=== PATIENT | female | born 1950 | race Caucasian/White ===

== ENCOUNTER → 2022-08-05 | Outpatient (CLI) | payer MEDICARE, BC, SELFPAY ==
[2022-08-05 13:55] LABS: Thyroid Stim Hormone (TSH) 3.86 uIU/mL (0.358-3.74)
[2022-08-07 08:29] LABS: Thyroid Peroxidase AB 299 IU/mL (0-34)
== END | disposition home or self-care (01) ==
LOC: LAB 12:34
PROVIDERS: PCP Nurse Practitioner Family; Referring Provider Nurse Practitioner Family; Visit Provider Nurse Practitioner Family
DX: E07.9 Disorder of thyroid, unspecified (principal); E06.3 Autoimmune thyroiditis
CPT/HCPCS: 36415; 84443; 86376

== ENCOUNTER → 2022-12-07 | Outpatient (CLI) | payer MEDICARE, BC, SELFPAY ==
[2022-12-07 10:43] LABS: Absolute Lymphocyte Count 2.37 X10^3/uL (0.83-4.51); Absolute Neutrophil Count 4.5 X10^3/uL (2.0-7.7); Basophil# 0.08 X10^3/uL; Eosinophil# 0.24 X10^3/uL; Eosinophils% 3.1 % (0-5); Hematocrit 44.8 % (37-47); Hemoglobin 14.9 g/dL (12.0-15.0); Lymphocyte # 2.37 X10^3/ul (0.83-4.51); Lymphocyte % 30.7 % (19-41); Mean Corp Hgb Conc 33.3 g/dL (32-36); Mean Corpuscular Hgb 32.7 pg (27.0-32.0); Mean Corpuscular Volume 98.5 fL (81-99); Mean Platelet Vol. 11.6 fl (6.2-12.0); Monocyte# 0.54 X10^3/uL; NRBC Flagged by Analyzer 0 % (0-5); Neutrophil # 4.48 X10^3/uL (2.7-7.7); Neutrophil % 58.1 % (47-70); Platelet Count 246 K/mm3 (150-450); RBC Distribution Width CV 14.2 % (11.6-14.6); RBC Distribution Width SD 51.8 fl (35.1-43.9); Red Blood Count 4.55 M/mm3 (4.2-5.4); White Blood Count 7.7 K/mm3 (4.4-11.0)
[2022-12-07 11:04] LABS: Vitamin B12 325 pg/mL (211-911); Vitamin D,25 Hydroxy 72.3 ng/mL
[2022-12-07 11:09] LABS: ALB/GLOB Ratio 0.9 RATIO (0.9-2.4); AST(SGOT) 22 U/L (15-37); Alanine Aminotransfer ALT/SGPT 31 U/L (13-56); Albumin, Serum 3.7 g/dL (3.2-5.0); Alkaline Phosphatase 83 U/L (45-117); Anion Gap 6 (5-15); BUN 20 mg/dL (7-18); BUN/Creat Ratio 24.6 RATIO (10-20); Calcium,Total 9.3 mg/dL (8.5-10.1); Chloride 109 mmol/L (98-107); Cholesterol 238 mg/dL (200); Creatinine, Serum 0.81 mg/dL (0.55-1.02); EST Glomerular Filtration Rate 74 mL/min (>60); Est Glom Filt Rate - Afr Amer 89 mL/min (>60); Ferritin 116 ng/mL (8-252); Globulin 4.1 g/dL (2.2-4.2); Glucose 112 mg/dL (74-106); High Density Lipoprotein 46 mg/dL; Magnesium 2.4 mg/dL (1.6-2.6); Potassium 3.8 mmol/L (3.5-5.1); Protein, Total 7.8 g/dL (6.4-8.2); Sodium Level 138 mmol/L (136-145); Triglycerides 181 mg/dL; Very Low Density Lipoprotein 36 mg/dL (5-40)
[2022-12-07 11:09] LABS: Thyroid Stim Hormone (TSH) 1.11 uIU/mL (0.358-3.74)
== END | disposition home or self-care (01) ==
LOC: LAB 09:05
PROVIDERS: PCP Family Medicine; Referring Provider Nurse Practitioner Family; Visit Provider Nurse Practitioner Family
DX: E11.9 Type 2 diabetes mellitus without complications (principal); E06.3 Autoimmune thyroiditis; Z13.220 Encounter for screening for lipoid disorders; R53.83 Other fatigue
CPT/HCPCS: 36415; 80053; 80061; 82306; 82607; 82728; 83036; 83735; 84439; 84443; 85025

== ENCOUNTER → 2023-03-24 | Outpatient (CLI) | payer MEDICARE, BC, SELFPAY ==
[2023-03-24 13:35] LABS: Vitamin B12 1083 pg/mL (211-911)
== END | disposition home or self-care (01) ==
LOC: LAB 12:37
PROVIDERS: PCP Family Medicine; Referring Provider Family Medicine; Visit Provider Family Medicine
DX: R53.83 Other fatigue (principal)
CPT/HCPCS: 36415; 82607

== ENCOUNTER → 2023-09-27 | Outpatient (CLI) | payer MEDICARE, BC, SELFPAY ==
[2023-09-27 11:11] LABS: Absolute Lymphocyte Count 2.66 X10^3/uL (0.83-4.51); Absolute Neutrophil Count 5.3 X10^3/uL (2.0-7.7); Basophil% 1.1 % (0-1); Eosinophil# 0.25 X10^3/uL; Eosinophils% 2.8 % (0-5); Hematocrit 43.5 % (37-47); Hemoglobin 14.7 g/dL (12.0-15.0); Lymphocyte # 2.66 X10^3/ul (0.83-4.51); Lymphocyte % 29.8 % (19-41); Mean Corp Hgb Conc 33.8 g/dL (32-36); Mean Corpuscular Hgb 32.2 pg (27.0-32.0); Mean Corpuscular Volume 95.2 fL (81-99); Monocyte% 6.7 % (0-10); NRBC Flagged by Analyzer 0 % (0-5); Neutrophil # 5.28 X10^3/uL (2.7-7.7); Neutrophil % 59.3 % (47-70); Platelet Count 263 K/mm3 (150-450); RBC Distribution Width CV 12.7 % (11.6-14.6); RBC Distribution Width SD 44.4 fl (35.1-43.9); Red Blood Count 4.57 M/mm3 (4.2-5.4); White Blood Count 8.9 K/mm3 (4.4-11.0)
[2023-09-27 11:41] LABS: Vitamin B12 1493 pg/mL (211-911); Vitamin D,25 Hydroxy 60.8 ng/mL
[2023-09-27 11:50] LABS: ALB/GLOB Ratio 0.9 RATIO (0.9-2.4); AST(SGOT) 21 U/L (15-37); Alanine Aminotransfer ALT/SGPT 38 U/L (13-56); Albumin, Serum 3.7 g/dL (3.2-5.0); Alkaline Phosphatase 84 U/L (45-117); Anion Gap 5 (5-15); BUN 20 mg/dL (7-18); BUN/Creat Ratio 28.5 RATIO (10-20); Calcium,Total 9.2 mg/dL (8.5-10.1); Chloride 108 mmol/L (98-107); Cholesterol 246 mg/dL (200); EST Glomerular Filtration Rate 87 mL/min (>60); Est Glom Filt Rate - Afr Amer 105 mL/min (>60); Ferritin 206 ng/mL (8-252); Globulin 4.2 g/dL (2.2-4.2); Glucose 228 mg/dL (74-106); High Density Lipoprotein 42 mg/dL; Potassium 3.8 mmol/L (3.5-5.1); Protein, Total 7.9 g/dL (6.4-8.2); Sodium Level 139 mmol/L (136-145); T4 Free Direct 1.33 ng/dL (0.76-1.46); Triglycerides 157 mg/dL; Very Low Density Lipoprotein 31 mg/dL (5-40)
[2023-09-27 11:54] LABS: Microalbumin,Random Urine 39.3 mg/L (NO RANGE EST.); Microalbumin:Creatinine Ratio 19.8 mg/g CRE (<30 mg/g CRE)
== END | disposition home or self-care (01) ==
LOC: LAB 10:44
PROVIDERS: PCP Family Medicine; Referring Provider Nurse Practitioner Family; Visit Provider Nurse Practitioner Family
DX: E06.3 Autoimmune thyroiditis (principal); E11.3293 Type 2 diabetes mellitus with mild nonproliferative diabetic retinopathy without macular edema, bilateral; R53.83 Other fatigue; E78.00 Pure hypercholesterolemia, unspecified; E55.9 Vitamin D deficiency, unspecified
CPT/HCPCS: 36415; 80053; 80061; 82043; 82306; 82570; 82607; 82728; 84439; 84443; 85025

== ENCOUNTER → 2023-10-01 | Outpatient (CLI) | payer MEDICARE, BC, SELFPAY ==
[2023-10-01 14:17] LABS: AST(SGOT) 24 U/L (15-37); Alanine Aminotransfer ALT/SGPT 35 U/L (13-56); Albumin, Serum 4.1 g/dL (3.2-5.0); Alkaline Phosphatase 82 U/L (45-117); Anion Gap 6 (5-15); BUN 17 mg/dL (7-18); BUN/Creat Ratio 22.9 RATIO (10-20); Calcium,Total 9.6 mg/dL (8.5-10.1); Chloride 107 mmol/L (98-107); Creatinine, Serum 0.74 mg/dL (0.55-1.02); EST Glomerular Filtration Rate 82 mL/min (>60); Est Glom Filt Rate - Afr Amer 99 mL/min (>60); Glucose 169 mg/dL (74-106); Potassium 3.7 mmol/L (3.5-5.1); Protein, Total 8.1 g/dL (6.4-8.2); Sodium Level 137 mmol/L (136-145)
[2023-10-03 16:07] LABS: Dilute Prothrombin Time (dPT) 43.7 sec (0.0-47.6); Interpretation Comment: (.); PTT-LA 40.8 sec (0.0-43.5); Thrombin Time 18.5 sec (0.0-23.0); dPT Confirm Ratio 1.02 Ratio (0.00-1.34)
[2023-10-06 16:09] LABS: ANTINUCLEAR ANTIBODIES DIRECT Negative (Negative); Anti-Histone Abs 0.8 Units (0.0-0.9)
== END | disposition home or self-care (01) ==
LOC: MFPLAB 11:18
PROVIDERS: PCP Family Medicine; Visit Provider Family Medicine
DX: D89.89 Other specified disorders involving the immune mechanism, not elsewhere classified (principal); R10.9 Unspecified abdominal pain
CPT/HCPCS: 36415; 80053; 86038; 86235; 86431

== ENCOUNTER → 2023-12-27 | Outpatient (CLI) | payer MEDICARE, BC, SELFPAY ==
[2023-12-27 11:55] LABS: Thyroid Stim Hormone (TSH) 0.93 uIU/mL (0.358-3.74)
== END | disposition home or self-care (01) ==
LOC: LAB 11:03
PROVIDERS: PCP Family Medicine; Referring Provider Nurse Practitioner Family; Visit Provider Nurse Practitioner Family
DX: E06.3 Autoimmune thyroiditis (principal)
CPT/HCPCS: 36415; 84439; 84443

== ENCOUNTER → 2024-01-12 | Outpatient (CLI) | payer MEDICARE, BC, SELFPAY ==
--- NOTE | 2024-01-12 10:52 | US_ITS ---
STUDY: THYROID ULTRASOUND REASON FOR EXAM: Female, 73 years old. hypothyroid -- please include parotid glands TECHNIQUE: Ultrasound evaluation of the thyroid was performed with real-time and static ferrer-scale imaging. COMPARISON: None. FINDINGS: RIGHT LOBE: The right lobe of the thyroid gland measures 4.1 x 1.3 x 1.6 cm. There is a heterogeneous echotexture. Nodule 1:4 x 5 x 5 mm solid hyperechoic smaller than wide ill-defined margin nodule and no echogenic foci (TR 4) in the inferior right lobe consistent with an adenoma. LEFT LOBE: The left lobe of the thyroid gland measures 3.6 x 1.2 x 1.2 cm. There is a homogeneous echotexture. Nodule 2:12 x 6 x 11 mm solid isoechoic quadrant all ill-defined margin nodule and no echogenic foci (TR 3) in the medial left lobe consistent with an adenoma. ISTHMUS: The isthmus measures 5 mm thick. . The regional lymph nodes are normal. IMPRESSION: Thyroiditis with small adenomas. Electronically Signed: Haseeb Mendez MD at 11:35 EDT , STUDY: SUPERFICIAL ULTRASOUND - SOFT TISSUE NECK REASON FOR EXAM: Female, 73 years old. hypothyroid -- please include parotid glands -- right neck swelling, carotid area TECHNIQUE: A superficial ultrasound was performed with real-time and static ferrer-scale imaging. COMPARISON: None. FINDINGS: Multiple longitudinal and transverse ultrasound images of the parotid glands were obtained. Next The right parotid gland is normal in size measuring 6.1 x 4.0 x 2.6 cm. The right parotid gland demonstrates normal morphology and echogenicity. There is a 7 mm oval hypoechoic mass within the right parotid gland likely consistent with a lymph node. There is another 8 mm oval hypoechoic mass with central increased echogenicity adjacent to the right parotid gland consistent with a lymph node. There is another 9 mm lymph node adjacent to the right parotid gland. The left parotid gland is normal in size measuring 5.2 x 4.6 x 2.1 cm. The left parotid gland demonstrates normal morphology and echogenicity. There is a 9 mm oval hypoechoic mass within the left parotid gland likely consistent with a lymph node. e US/Head/Neck Soft Tissue IMPRESSION: Normal parotid glands. Electronically Signed: Haseeb Mendez MD at 13:09 EDT ,
== END | disposition home or self-care (01) ==
LOC: US 10:44
PROVIDERS: PCP Family Medicine; Referring Provider Nurse Practitioner Family; Visit Provider Nurse Practitioner Family
DX: E07.9 Disorder of thyroid, unspecified (principal); K11.1 Hypertrophy of salivary gland
CPT/HCPCS: 76536

== ENCOUNTER → 2024-02-21 | Outpatient (CLI) | payer MEDICARE, BC, SELFPAY ==
--- NOTE | 2024-02-21 13:40 | CT_ITS ---
INDICATION: LUMP/MASS ON NECK EXAMINATION: CT NECK WITH CONTRAST - CT Soft Tissue Neck W/ Contrast Injection TECHNIQUE: Helically acquired images were obtained of the neck following IV contrast. The protocol utilizes one or more of the following dose reduction techniques: automated exposure control, adjustment of mA and/or kV according to patient size,and/or use of iterative reconstruction technique. IV Contrast dosage and agent: 75 mL of Isovue-370 RADIATION DOSAGE (If Supplied By Facility): CTDIvol = ( 17.99 ) mGy, DLP = ( 512.36 ) mGycm COMPARISON: No relevant prior comparison study available FINDINGS: NASOPHARYNX: Unremarkable. SUPRAHYOID NECK: Unremarkable oropharynx, oral cavity, parapharyngeal space, and retropharyngeal space. A marker is positioned along the right neck at the region of concern. This is along the inferior margin of the parotid gland. There is an adjacent small lymph node. No suspicious mass. INFRAHYOID NECK: Unremarkable larynx, hypopharynx, and supraglottis. THYROID: No focal lesions. SALIVARY GLANDS: Unremarkable. LYMPH NODES: No cervical or supraclavicular lymphadenopathy. VASCULAR STRUCTURES: Normal caliber of the vasculature. Mild atherosclerotic calcification. VISUALIZED PORTIONS OF THE ORBITS, PARANASAL SINUSES, MASTOID AIR CELLS AND SKULL BASE: Unremarkable. BONES: No acute abnormality. Mild to moderate degenerative change throughout the cervical spine. THORACIC INLET: Clear lung apices. CT/Soft Tissue Neck WITH Contrast IMPRESSION: No suspicious findings in the neck. Underlying the marker there is no focal mass. Small lymph node identified as well as the inferior margin of the parotid gland. Electronically Signed: Leonardo Sweet MD at 22:42 EDT ,
[2024-02-21 14:15] LABS: CREATININE FINGERSTICK < 1.0 mg/dL (0.55-1.02); EGFR FINGERSTICK > 60.0000 mL/min (>60)
== END | disposition home or self-care (01) ==
PROVIDERS: PCP Family Medicine; Referring Provider Otolaryngology; Visit Provider Otolaryngology
DX: Z01.812 Encounter for preprocedural laboratory examination (principal); R22.1 Localized swelling, mass and lump, neck
CPT/HCPCS: 70491; Q9967; A4216

== ENCOUNTER 2024-09-21 11:55 | Outpatient (CLI) | payer MEDICARE, BC, SELFPAY ==
--- NOTE | 2024-09-21 12:45 | RAD_ITS ---
PROCEDURE: Lumbar spine radiographs, three views 09/21/2024 REASON FOR EXAM: PAIN TECHNIQUE: Three views of the lumbar spine were obtained. COMPARISON: None available FINDINGS: Three views of the lumbar spine were obtained. The bones are osteopenic. Right upper quadrant surgical clips are present. No acute lumbar vertebral body fracture. Grade 1 anterolisthesis of L4 relative to L5. Moderate multilevel degenerative disc and facet disease in the lumbar spine, greatest at the L5-S1 level. RAD/Lumbar Spine 2 or 3 Views IMPRESSION: Osteopenia. No acute bony abnormality of the lumbar spine. Moderate multilevel degenerative disc and facet disease in the lumbar spine, gr eatest at L5-S1. If there is persistent pain or clinical concern, follow-up MRI evaluation may b e considered. Reading Location: [facility]
[2024-09-21 17:21] LABS: ALB/GLOB Ratio 1.4 RATIO (0.9-2.4); AST(SGOT) 35 U/L (<=31); Alanine Aminotransfer ALT/SGPT 50 U/L (<=34); Albumin, Serum 4.6 g/dL (3.4-4.8); Alkaline Phosphatase 75 U/L (35-104); Anion Gap 15 (5-15); BUN 18 mg/dL (4-19); BUN/Creat Ratio 23.4 RATIO (10-20); Calcium,Total 9.9 mg/dL (7.6-11.0); Carbon Dioxide 19.4 mmol/L (21.0-32.0); Chloride 104 mmol/L (98-108); Cholesterol 254 mg/dL (<=200); Creatinine, Serum 0.78 mg/dL (0.70-1.20); EST Glomerular Filtration Rate 80 (>60); Globulin 3.2 g/dL (2.2-4.2); Glucose 236 mg/dL (70-99); High Density Lipoprotein 33 mg/dL; Low Density Lipoprotein Calc. 167 mg/dL; Potassium 4.1 mmol/L (3.3-5.1); Protein, Total 7.8 g/dL (5.9-8.4); Sodium Level 138 mmol/L (133-145); Total Bilirubin 0.32 mg/dL (0.00-1.30); Triglycerides 270 mg/dL; Very Low Density Lipoprotein 54 mg/dL (5-40); cholesterol:hdl ratio screen 7.67
[2024-09-21 17:23] LABS: Thyroid Stim Hormone (TSH) 0.602 uIU/mL (0.300-4.200); Vitamin D,25 Hydroxy 32.9 ng/mL (30-100)
== END 2024-09-21 23:59 | disposition home or self-care (01) ==
PROVIDERS: PCP Family Medicine; Referring Provider Family Medicine; Visit Provider Family Medicine
DX: E03.9 Hypothyroidism, unspecified (principal); E11.9 Type 2 diabetes mellitus without complications; M54.10 Radiculopathy, site unspecified
CPT/HCPCS: 36415; 72100; 80053; 80061; 82306; 84443

== ENCOUNTER → 2025-01-03 | Outpatient (CLI) | payer MEDICARE, BC, SELFPAY ==
--- NOTE | 2025-01-03 10:10 | BI_ITS ---
EXAM: SCRN MAMM (CAD)W/EDUIN BILAT DATE: 01/03/2025 CLINICAL HISTORY: F, Age 74 y/o , SCREENING TECHNIQUE: SCRN MAMM (CAD)W/EDUIN BILAT COMPARISON: Prior exam(s) dated 12/18/2020, 09/13/2018. FINDINGS: TISSUE DENSITY: The breasts are almost entirely fatty. Bilateral Breast Mammographic Findings: No significant masses, calcifications or other abnormalities are identified. BI/SCRN MAMM (CAD)W/EDUIN BILAT IMPRESSION: There is no mammographic evidence of malignancy. OVERALL FINAL ASSESSMENT BI-RADS 1: NEGATIVE. RECOMMENDATION: Routine annual follow-up in 1 Year A letter with findings and recommendations will be mailed to the patient. Reading Location: [id number]
--- OUTSIDE RECORDS SUMMARY | 2025-01-03 18:39 | XMS RPT_ITS | CCD ---
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 following dose reduction techniques: automated exposure control, adjustment of mA and/or kV according to patient size,and/or use of iterative reconstruction technique. IV Contrast dosage and agent: 75 mL of Isovue-370 RADIATION DOSAGE (If Supplied By Facility): CTDIvol = ( 17.99 ) mGy, DLP = ( 512.36 ) mGycm COMPARISON: No relevant prior comparison study available FINDINGS: NASOPHARYNX: Unremarkable. SUPRAHYOID NECK: Unremarkable oropharynx, oral cavity, parapharyngeal space, and retropharyngeal space. A marker is positioned along the right neck at the region of concern. This is along the inferior margin of the parotid gland. There is an adjacent small lymph node. No suspicious mass. INFRAHYOID NECK: Unremarkable larynx, hypopharynx, and supraglottis. THYROID: No focal lesions. SALIVARY GLANDS: Unremarkable. LYMPH NODES: No cervical or supraclavicular lymphadenopathy. VASCULAR STRUCTURES: Normal caliber of the vasculature. Mild atherosclerotic calcification. VISUALIZED PORTIONS OF THE ORBITS, PARANASAL SINUSES, MASTOID AIR CELLS AND SKULL BASE: Unremarkable. BONES: No acute abnormality. Mild to moderate degenerative change throughout the cervical spine. THORACIC INLET: Clear lung apices. CT/Soft Tissue Neck WITH Contrast IMPRESSION: No suspicious findings in the neck. Underlying the marker there is no focal mass. Small lymph node identified as well as the inferior margin of the parotid gland. Electronically Signed: Leonardo Sweet MD at 22:42 EDT Reading Location ID and State: [address] [place] [address] Tel , Service support , CC: Dr. Rene Cortez MD; Dr. Steven Mendez MD Proposal Review Analyst: Signed Normal [facility] Head/Neck Soft Tissueon 08- Head/Neck Soft Tissue [facility] Imaging Services [address] [place] [id number] Head/Neck Soft Tissue MR#: [id number] Acct: [id number] Name: DREW WOODARD Rep #: [id number] : 1950 F 73 From: Haseeb Mendez MD PCP: Dr. Rene Cortez MD Status: [facility] CLI Study: Head/Neck Soft Tissue Date of Exam: 01/12/24 Exam# [id number] Ordering Dr: Una Gaona [employer]ACHINE-C [id number] STUDY: THYROID ULTRASOUND REASON FOR EXAM: Female, 73 years old. hypothyroid -- please include parotid glands TECHNIQUE: Ultrasound evaluation of the thyroid was performed with real-time and static ferrer-scale imaging. COMPARISON: None. FINDINGS: RIGHT LOBE: The right lobe of the thyroid gland measures 4.1 x 1.3 x 1.6 cm. There is a heterogeneous echotexture. Nodule 1:4 x 5 x 5 mm solid hyperechoic smaller than wide ill-defined margin nodule and no echogenic foci (TR 4) in the inferior right lobe consistent with an adenoma. LEFT LOBE: The left lobe of the thyroid gland measures 3.6 x 1.2 x 1.2 cm. There is a homogeneous echotexture. Nodule 2:12 x 6 x 11 mm solid isoechoic quadrant all ill-defined margin nodule and no echogenic foci (TR 3) in the medial left lobe consistent with an adenoma. ISTHMUS: The isthmus measures 5 mm thick. . The regional lymph nodes are normal. IMPRESSION: Thyroiditis with small adenomas. Electronically Signed: Haseeb Mendez MD at 11:35 EDT , [id number] STUDY: SUPERFICIAL ULTRASOUND - SOFT TISSUE NECK REASON FOR EXAM: Female, 73 years old. hypothyroid -- please include parotid glands -- right neck swelling, carotid area TECHNIQUE: A superficial ultrasound was performed with real-time and static frerer-scale imaging. COMPARISON: None. FINDINGS: Multiple longitudinal and transverse ultrasound images of the parotid glands were obtained. Next The right parotid gland is normal in size measuring 6.1 x 4.0 x 2.6 cm. The right parotid gland demonstrates normal morphology and echogenicity. There is a 7 mm oval hypoechoic mass within the right parotid gland likely consistent with a lymph node. There is another 8 mm oval hypoechoic mass with central increased echogenicity adjacent to the right parotid gland consistent with a lymph node. There is another 9 mm lymph node adjacent to the right parotid gland. The left parotid gland is normal in size measuring 5.2 x 4.6 x 2.1 cm. The left parotid gland demonstrates normal morphology and echogenicity. There is a 9 mm oval hypoechoic mass within the left parotid gland likely consistent with a lymph node. e US/Head/Neck Soft Tissue IMPRESSION: Normal parotid glands. Electronically Signed: Haseeb Mendez MD at 13:09 EDT , CC: WYATT Gaona; Dr. Rene Cortez MD Proposal Review Analyst: Signed Normal [facility] Endocrinology Visit Reporton 12-27-2023 Endocrinology Visit Report [facility] [address] [place] [address] OFFICE VISIT Date of Service: 12/27/23 MR#: [id number] Acct: [id number] Name: DREW WOODARD Rep #: [id number] : 1950 Provider: WYATT jordan Age/Sex: 73/F Location: [facility] Status: Signed Intake Vital Signs 09/27/23 09:56 12/27/23 10:12 Height 5 ft 3 in 5 ft 3 in Weight: 209 lb BMI 37.0 BP 106/52 L Blood Pressure Location Lt brachial Position Sitting Pulse 77 Pulse Source Monitor Pulse Oximetry (%) 95 Oxygen Delivery Method room air Intake Visit Reasons: 3 M FU Chief Complaint: f/u diabetes/hypothyroidism [employer] Required: No Accompanied by: Self Is patient in pain?: Yes (General) Pain scale (1-10): 6 Allergies phenytoin (From Dilantin) Allergy (Severe, Verified 12/27/23 10:16) Hives Medications ???Medication ???Instructions ???Recorded ???Confirmed ???Type pen needle, diabetic 32 gauge x #100 ea 08/07/22 12/27/23 Rx /32 (BD Ultra-Fine Laquita Pen Needle) magnesium 250 mg tablet 250 mg PO DAILY 01/06/23 12/27/23 History selenium 200 mcg tablet 200 mcg PO DAILY 01/06/23 12/27/23 History thiamine HCl (vitamin B1) 100 mg 100 mg PO DAILY 01/06/23 12/27/23 History tablet insulin glargine 100 60 unit (0.6 mL) subcut QAM #18 mL 06/28/23 12/27/23 Rx unit-lixisenatide 33 mcg/mL subcutaneous pen (Soliqua 100/33) blood-glucose meter,continuous #1 ea 09/29/23 12/27/23 Rx (FreeStyle [place] 3 [place]) blood-glucose sensor (FreeStyle #2 ea 09/29/23 12/27/23 Rx [place] 3 Sensor device) krill 1,000 mg-omega-3 170 mg-dha 1 cap PO QDAY 12/27/23 12/27/23 History 50 mg-epa 80 nr-pwxnfw-sazpb capsule (krill oil) levothyroxine 100 mcg tablet 100 mcg PO DAILY #90 tabs 12/27/23 Rx potassium 99 mg tablet 99 mg PO DAILY 12/27/23 12/27/23 History vitamin D3 250 mcg (10,000 1 cap PO DAILY 12/27/23 12/27/23 History unit)-vitamin K2 45 mcg capsule Have you fallen in the past year?: No PFSH Medical History Hyperlipidemia BUSTER (obstructive sleep apnea) Obesity High cholesterol Diabetes José's disease Surgical History Rectal prolapse History of left heart catheterization ( 2011) Prolapse of bladder History of cholecystectomy H/O: hysterectomy Family History Mother Angina at rest Arthritis Cancer melanoma/skin cancer Atrial fibrillation Daughter Breast cancer Sister Cancer cervical Father High cholesterol Cancer Diabetes Grandmother Breast cancer Diabetes Other Autoimmune disorder Depression Heart disease Social History Smoking Status: Never smoker alcohol intake: never substance use type: does not use caffeine: Yes what type of physical activity do you participate in: none HPI HPI Chief Complaint: f/u diabetes/hypothyroidism Details: DREW WOODARD, is a 73 F who presents to the office today for evaluation and management of diabetes. A1C today is 9.3%, increased from 09/27/23 at 8.8%. She has lost 3 lbs. Currently taking Soliqua 50 once daily. She was placed on meal time insulin at previous appointment; however, she states that it was not working and making her anxious, so she discontinued use. She reports significant flair of auto-immune conditions. She was on a course of prednisone with significant affect on her blood sugars. Unfortunately, she forgot her CGM reader today. Denies any significant episodes of hypoglycemia that have required assistance from others. She has José's. Currently taking levothyroxine 100 mcg once daily. Reports significant issues with anxiety. TSH was normal in September of this year. Hx of swelling to right parotid gland, confirmed with ultrasound. Reports increased swelling, denies pain. Reports her chronic conditions are significantly affecting her quality of life. Exam Const General: cooperative, comfortable, no acute distress and ill appearing chronically Nutritional Appearance: obese Orientation: alert, awake and oriented x3 HENMT Head: normal to inspection Ears: hearing grossly normal bilaterally Nose: external nose normal Face and sinus: normal facial exam Eyes General: appearance normal, both eyes and all related structures Alignment and Position: alignment normal Sclera: sclerae normal Neck Neck: normal visual inspection Carotids: normal carotid upstroke Chest Chest palpation inspection: normal inspection of the chest Resp Effort Inspection: normal respiratory effort, able to speak in complete sentences, symmetric chest movement, normal respira (more content not included)... Normal [facility] T4 Free Directon 12-27-2023 T4 FREE DIRECT 1.20 ng/dL Normal 0.76-1.46 [facility] Comment on above: Performed By: #### L 501.9520, L506.0400 #### [facility] [address] [place], [address] Thyroid Stim Hormone (TSH)on 12-27-2023 TSH 0.93 uIU/mL Normal 0.358-3.74 [facility] Comment on above: Performed By: #### L 501.9520, L506.0400 #### [facility] [address] [place], [address] Basophil percentageOrdered B y: Rene Cortez on 10-01-2023 Basophil percentage 31.0 IU/mL <15 [facility] Bilirubin [Mass/Vol] 0.60 mg/dL 0.20-1.00 [facility] Comment on above: For patients on eltr ombopag therapy, use of [place] TBIL is not recommended. Chloride [Moles/Vol] 107 mmol/L 98-107 [facility] Glucose [Mass/Vol] 169 mg/dL 74-106 [facility] Comment on above: Fasting Glucose resu lt greater than or equal to 126 mg/dL suggests DIABETES MELLITUS per A.D.A. criteria. Potassium [Moles/Vol] 3.7 mmol/L 3.5-5.1 [facility] Protein [Mass/Vol] 8.1 g/dL 6.4-8.2 [facility] Sodium [Moles/Vol] 137 mmol/L 136-145 [facility] Dilute Dickson's viper venom timeOrdered By: Rene Cortez on 10-01-2023 dRVVT Coag (PPP) [Time] 40.0 s 0.0-47.0 [facility] - Chemistry and C hemistry - challengeOrdered By: Rene Cortez on 10-01-2023 Albumin/Globulin [Mass ratio] 1.0 {ratio} 0.9-2.4 [facility] ALP [Catalytic activity/Vol] 82 U/L 45-117 [facility] ALT [Catalytic activity/Vol] 35 U/L 13-56 [facility] CO2 [Moles/Vol] 24.0 mmol/L 21.0-32.0 [facility] Globulin (S) [Mass/Vol] 4.0 g/dL 2.2-4.2 [facility] Urea nitrogen/Creatinine [Mass ratio] 22.9 mg/mg 10-20 [facility] No Panel InformationOrdered By: Rene Cortez on 10-01-2023 Estimated GFR (MDRD) Amer 99 mL/min >60 [facility] Comment on above: GFR Calc Estimated GFR (MDRD) Non-Af Amer 82 mL/min >60 [facility] Comment on above: Non- GFR Calc Serum or plasma calcium zuly urement (mass/volume)Ordered By: Rene Cortez on 10-01-2023 Calcium [Mass/Vol] 9.6 mg/dL 8.5-10.1 [facility] Serum or plasma creatinine m easurement (mass/volume)Ordered By: Rene Cortez on 10-01-2023 Creatinine [Mass/Vol] 0.74 mg/dL 0.55-1.02 [facility] Comment on above: The validity of the calculated GFR & GFRAA in patients over 70 years has not been determined. Clinical correlation is essential. Serum or plasma urea nitroge n measurement (mass/volume)Ordered By: Rene Cortez on 10-01-2023 Urea nitrogen [Mass/Vol] 17 mg/dL 7-18 [facility] Thin prep Papanicolaou smear with manual screeningOrdered By: Rene Cortez on 10-01-2023 Thin prep Papanicolaou smear with manual screening 4.1 g/dL 3.2-5.0 [facility] Thin prep Papanicolaou smear with manual screening 24 U/L 15-37 [facility] Thin prep Papanicolaou smear with manual screening 6 5-15 [facility] Thin prep Papanicolaou smear with manual screening 43.7 sec 0.0-47.6 [facility] Thin prep Papanicolaou smear with manual screening 1.02 Ratio 0.00-1.34 [facility] Thin prep Papanicolaou smear with manual screening 40.8 sec 0.0-43.5 [facility] Thin prep Papanicolaou smear with manual screening Comment: . [facility] Comment on above: No lupus anticoagula nt was detected.Performed at: [email or web address] [id number] Director: Aneesh Baeza MD, Phone: [phone] Thrombin time in platelet po or plasmaOrdered By: Rene Cortez on 10-01-2023 Thrombin time Coag (PPP) [Time] 18.5 sec 0.0-23.0 [facility] Absolute lymphocyte countOrd ered By: Una Gaona on 09-27-2023 Lymphocytes Auto (Unsp spec) [#/Vol] 2.66 10*3/uL 0.83-4.51 [facility] Automated lymphocyte count a s percentage of total leukocytesOrdered By: Una Gaona on 09-27-2023 Lymphocytes/100 WBC Auto (Unsp spec) 29.8 % 19-41 [facility] Basophil percentageOrdered B y: Una Gaona on 09-27-2023 Basophils/100 WBC (Bld) 1.1 % 0-1 [facility] Bilirubin [Mass/Vol] 0.50 mg/dL 0.20-1.00 [facility] Comment on above: For patients on eltr ombopag therapy, use of [place] TBIL is not recommended. Chloride [Moles/Vol] 108 mmol/L 98-107 [facility] Cholesterol [Mass/Vol] 246 mg/dL <200 [facility] Comment on above: <200 mg/dL Desirable 200-240 mg/dL Borderline >240 mg/dL High Risk Eosinophils/100 WBC (Bld) 2.8 % 0-5 [facility] Glucose [Mass/Vol] 228 mg/dL 74-106 [facility] Comment on above: Glucose result great er than or equal to 200 mg/dLsuggests DIABETES MELLITUS per A.D.A. criteria. Hemoglobin (Bld) [Mass/Vol] 14.7 g/dL 12.0-15.0 [facility] Monocytes/100 WBC (Bld) 6.7 % 0-10 [facility] Neutrophils (Bld) [#/Vol] 5.3 10*3/uL 2.0-7.7 [facility] Neutrophils/100 WBC (Bld) 59.3 % 47-70 [facility] Potassium [Moles/Vol] 3.8 mmol/L 3.5-5.1 [facility] Protein [Mass/Vol] 7.9 g/dL 6.4-8.2 [facility] Sodium [Moles/Vol] 139 mmol/L 136-145 [facility] Triglyceride [Mass/Vol] 157 mg/dL <199 [facility] Comment on above: The drugs N-Acetylcy steine and Metamizole may falsely depress this assay.Serum Triglycerides Reference Interval Normal <150 mg/dL Borderline high 150 - 199 mg/dL High 200 - 499 mg/dL Very High > or = 500 mg/dL WBC (Bld) [#/Vol] 8.9 10*3/uL 4.4-11.0 [facility] Determination of erythrocyte mean corpuscular volume (MCV)Ordered By: Una Gaona on 09-27-2023 MCV (RBC) [Entitic vol] 95.2 fL 81-99 [facility] Erythrocyte distribution wid th ratioOrdered By: Una Gaona on 09-27-2023 Erythrocyte distribution width (RBC) [Ratio] 12.7 % 11.6-14.6 [facility] Erythrocyte distribution wid th standard deviationOrdered By: Una Gaona on 09-27-2023 Erythrocyte distribution width (RBC) [Entitic vol] 44.4 fL 35.1-43.9 [facility] Hematocrit Auto (Bld) [Volum e fraction]Ordered By: Una Gaona on 09-27-2023 Hematocrit (Bld) [Volume fraction] 43.5 % 37-47 [facility] Immature granulocytes/100 WB C Auto (Bld)Ordered By: Una Gaona on 09-27-2023 Immature granulocytes/100 WBC (Bld) 0.300 % 0.0-0.9 [facility] Comment on above: IG% - Immature Granu locytes (promyelocytes, myelocytes and metamyelocytes) > 1% indicates that a LEFT SHIFT is Present. Laboratory - Chemistry and C hemistry - challengeOrdered By: Una Gaona on 09-27-2023 Albumin/Globulin [Mass ratio] 0.9 {ratio} 0.9-2.4 [facility] ALP [Catalytic activity/Vol] 84 U/L 45-117 [facility] ALT [Catalytic activity/Vol] 38 U/L 13-56 [facility] Cholesterol in HDL [Mass/Vol] 42 mg/dL >40 [facility] Comment on above: The drugs N-Acetylcy steine and Metamizole may falsely depress this assay. Reference Range HDL <40 mg/dL Low HDL Cholesterol HDL >or= 60 mg/dL High HDL Cholesterol Cholesterol in LDL [Mass/Vol] 173 mg/dL 0-130 [facility] CO2 [Moles/Vol] 26.0 mmol/L 21.0-32.0 [facility] Cobalamin (Vitamin B12) [Mass/Vol] 1493 pg/mL 211-911 [facility] Ferritin [Mass/Vol] 206 ng/mL 8-252 [facility] Globulin (S) [Mass/Vol] 4.2 g/dL 2.2-4.2 [facility] Urea nitrogen/Creatinine [Mass ratio] 28.5 mg/mg 10-20 [facility] Laboratory - Hematology and Cell countsOrdered By: Una Gaona on 09-27-2023 MCH (RBC) [Entitic mass] 32.2 pg 27.0-32.0 [facility] MCHC (RBC) [Mass/Vol] 33.8 g/dL 32-36 [facility] Nucleated RBC/100 WBC (Bld) [Ratio] 0 % 0-5 [facility] Platelet mean volume (Bld) [Entitic vol] 11.0 fL 6.2-12.0 [facility] Platelets (Bld) [#/Vol] 263 10*3/uL 150-450 [facility] Laboratory - Hematology and Cell countson 09-27-2023 HbA1c (Bld) [Mass fraction] 8.8 % [facility] No Panel InformationOrdered By: Una Gaona on 09-27-2023 Estimated GFR (MDRD) Amer 105 mL/min >60 [facility] Comment on above: GFR Calc Estimated GFR (MDRD) Non-Af Amer 87 mL/min >60 [facility] Comment on above: Non- GFR Calc Urine Microalbumin/Creatinin e Ratio 19.8 mg/g CRE <30 [facility] Vitamin D 25-Hydroxy 60.8 ng/mL [facility] Comment on above: Vitamin D 25(OH) Sta tus Range Deficiency <20 ng/mL (50nmol/L) Insufficiency 20 - 30 ng/mL (50 - 75 nmol/L) Sufficiency 30 - 100 ng/mL (75 - 250 nmol/L) Toxicity >100 ng/mL (>250 nmol/L) VLDL Cholesterol 31 mg/dL 5-40 [facility] RBC Auto (Bld) [#/Vol]Ordere d By: Una Gaona on 09-27-2023 RBC (Bld) [#/Vol] 4.57 10*6/uL 4.2-5.4 [facility] Serum or plasma calcium zuly urement (mass/volume)Ordered By: Una Gaona on 09-27-2023 Calcium [Mass/Vol] 9.2 mg/dL 8.5-10.1 [facility] Serum or plasma creatinine m easurement (mass/volume)Ordered By: Una Gaona on 09-27-2023 Creatinine [Mass/Vol] 0.70 mg/dL 0.55-1.02 [facility] Comment on above: The validity of the calculated GFR & GFRAA in patients over 70 years has not been determined. Clinical correlation is essential. Serum or plasma thyroid stim ulating hormone (TSH) measurement (units/volume)Ordered By: Una Gaona on 09-27-2023 TSH Qn 0.70 uIU/mL 0.358-3.74 [facility] Serum or plasma urea nitroge n measurement (mass/volume)Ordered By: Una Gaona on 09-27-2023 Urea nitrogen [Mass/Vol] 20 mg/dL 7-18 [facility] Thin prep Papanicolaou smear with manual screeningOrdered By: Una Gaona on 09-27-2023 Thin prep Papanicolaou smear with manual screening 3.7 g/dL 3.2-5.0 [facility] Thin prep Papanicolaou smear with manual screening 21 U/L 15-37 [facility] Thin prep Papanicolaou smear with manual screening 5 5-15 [facility] Thin prep Papanicolaou smear with manual screening 39.3 mg/L NO RANGE EST. [facility] Thin prep Papanicolaou smear with manual screening 1.33 ng/dL 0.76-1.46 [facility] Urine creatinine measurement (mass/volume)Ordered By: Una Gaona on 09-27-2023 Creatinine (U) [Mass/Vol] 198.00 mg/dL NO RANGE EST. [facility] Laboratory - Hematology and Cell countson 06-28-2023 HbA1c (Bld) [Mass fraction] 9.1 % [facility] - Chemistry and C hemistry - challengeOrdered By: Nargis Galan on 03-24-2023 Cobalamin (Vitamin B12) [Mass/Vol] 1083 pg/mL 211-911 [facility] Absolute lymphocyte countOrd ered By: Nargis Galan on 12-07-2022 Lymphocytes Auto (Unsp spec) [#/Vol] 2.37 10*3/uL 0.83-4.51 [facility] Basophil percentageOrdered B y: Nargis Galan on 12-07-2022 Basophils/100 WBC (Bld) 1.0 % 0-1 [facility] Bilirubin [Mass/Vol] 0.40 mg/dL 0.20-1.00 [facility] Comment on above: For patients on eltr ombopag therapy, use of [place] TBIL is not recommended. Chloride [Moles/Vol] 109 mmol/L 98-107 [facility] Cholesterol [Mass/Vol] 238 mg/dL <200 [facility] Comment on above: <200 mg/dL Desirable 200-240 mg/dL Borderline >240 mg/dL High Risk Eosinophils/100 WBC (Bld) 3.1 % 0-5 [facility] Glucose [Mass/Vol] 112 mg/dL 74-106 [facility] Comment on above: Fasting Glucose resu lt from 100 to 125 mg/dL suggests IMPAIRED HOMEOSTASIS per A.D.A. criteria. Neutrophils (Bld) [#/Vol] 4.5 10*3/uL 2.0-7.7 [facility] Neutrophils/100 WBC (Bld) 58.1 % 47-70 [facility] Potassium [Moles/Vol] 3.8 mmol/L 3.5-5.1 [facility] Protein [Mass/Vol] 7.8 g/dL 6.4-8.2 [facility] Sodium [Moles/Vol] 138 mmol/L 136-145 [facility] Triglyceride [Mass/Vol] 181 mg/dL <199 [facility] Comment on above: The drugs N-Acetylcy steine and Metamizole may falsely depress this assay.Serum Triglycerides Reference Interval Normal <150 mg/dL Borderline high 150 - 199 mg/dL High 200 - 499 mg/dL Very High > or = 500 mg/dL WBC (Bld) [#/Vol] 7.7 10*3/uL 4.4-11.0 [facility] Blood erythrocytes count (nu mber/volume)Ordered By: Nargis Galan on 12-07-2022 RBC (Bld) [#/Vol] 4.55 10*6/uL 4.2-5.4 [facility] Blood hemoglobin measurement (mass/volume)Ordered By: Nargis Galan on 12-07-2022 Hemoglobin (Bld) [Mass/Vol] 14.9 g/dL 12.0-15.0 [facility] Blood lymphocytes/100 leukoc ytesOrdered By: Nargis Galan on 12-07-2022 Lymphocytes/100 WBC (Bld) 30.7 % 19-41 [facility] Blood monocytes/100 leukocyt esOrdered By: Nargis Galan on 12-07-2022 Monocytes/100 WBC (Bld) 7.0 % 0-10 [facility] Blood platelet mean volumeOr dered By: Nargis Galan on 12-07-2022 Platelet mean volume (Bld) [Entitic vol] 11.6 fL 6.2-12.0 [facility] Determination of erythrocyte mean corpuscular volume (MCV)Ordered By: Nargis Galan on 12-07-2022 MCV (RBC) [Entitic vol] 98.5 fL 81-99 [facility] Hematocrit Auto (Bld) [Volum e fraction]Ordered By: Nargis Galan on 12-07-2022 Hematocrit (Bld) [Volume fraction] 44.8 % 37-47 [facility] Laboratory - Chemistry and C hemistry - challengeOrdered By: Nargis Galan on 12-07-2022 ALP [Catalytic activity/Vol] 83 U/L 45-117 [facility] ALT [Catalytic activity/Vol] 31 U/L 13-56 [facility] CO2 [Moles/Vol] 23.0 mmol/L 21.0-32.0 [facility] Cobalamin (Vitamin B12) [Mass/Vol] 325 pg/mL 211-911 [facility] Globulin (S) [Mass/Vol] 4.1 g/dL 2.2-4.2 [facility] Magnesium [Mass/Vol] 2.4 mg/dL 1.6-2.6 [facility] Urea nitrogen/Creatinine [Mass ratio] 24.6 mg/mg 10-20 [facility] Laboratory - Chemistry and C hemistry - challengeOrdered By: Una Gaona on 12-07-2022 Free T4 [Mass/Vol] 1.20 ng/dL 0.76-1.46 [facility] Laboratory - Hematology and Cell countsOrdered By: Nargis Galan on 12-07-2022 Erythrocyte distribution width (RBC) [Entitic vol] 51.8 fL 35.1-43.9 [facility] Erythrocyte distribution width (RBC) [Ratio] 14.2 % 11.6-14.6 [facility] Immature granulocytes/100 WBC (Bld) 0.100 % 0.0-0.9 [facility] Comment on above: IG% - Immature Granu locytes (promyelocytes, myelocytes and metamyelocytes) > 1% indicates that a LEFT SHIFT is Present. MCH (RBC) [Entitic mass] 32.7 pg 27.0-32.0 [facility] Nucleated RBC/100 WBC (Bld) [Ratio] 0 % 0-5 [facility] MCHC Auto (RBC) [Mass/Vol]Or dered By: Nargis Galan on 12-07-2022 MCHC (RBC) [Mass/Vol] 33.3 g/dL 32-36 [facility] No Panel InformationOrdered By: Nargis Galan on 12-07-2022 Estimated GFR (MDRD) Amer 89 mL/min >60 [facility] Comment on above: GFR Calc Estimated GFR (MDRD) Non-Af Amer 74 mL/min >60 [facility] Comment on above: Non- GFR Calc Vitamin D 25-Hydroxy 72.3 ng/mL [facility] Comment on above: Vitamin D 25(OH) Sta tus Range Deficiency <20 ng/mL (50nmol/L) Insufficiency 20 - 30 ng/mL (50 - 75 nmol/L) Sufficiency 30 - 100 ng/mL (75 - 250 nmol/L) Toxicity >100 ng/mL (>250 nmol/L) No Panel InformationOrdered By: Una Gaona on 12-07-2022 Thyroid Stimulating Hormone (TSH) 1.11 uIU/mL 0.358-3.74 [facility] Platelets bldOrdered By: Hillary Galan on 12-07-2022 Platelets (Bld) [#/Vol] 246 10*3/uL 150-450 [facility] Serum or plasma albumin zuly urement (mass/volume)Ordered By: Nargis Galan on 12-07-2022 Albumin [Mass/Vol] 3.7 g/dL 3.2-5.0 [facility] Serum or plasma albumin/glob ulin mass ratioOrdered By: Nargis Galan on 12-07-2022 Albumin/Globulin [Mass ratio] 0.9 {ratio} 0.9-2.4 [facility] Serum or plasma calcium zuly urement (mass/volume)Ordered By: Nargis Galan on 12-07-2022 Calcium [Mass/Vol] 9.3 mg/dL 8.5-10.1 [facility] Serum or plasma cholesterol in HDL measurement (mass/volume)Ordered By: Nargis Galan on 12-07-2022 Cholesterol in HDL [Mass/Vol] 46 mg/dL >40 [facility] Comment on above: The drugs N-Acetylcy steine and Metamizole may falsely depress this assay. Reference Range HDL <40 mg/dL Low HDL Cholesterol HDL >or= 60 mg/dL High HDL Cholesterol Serum or plasma cholesterol in VLDL measurement (mass/volume)Ordered By: Nargis Galan on 12-07-2022 Cholesterol in VLDL [Mass/Vol] 36 mg/dL 5-40 [facility] Serum or plasma creatinine m easurement (mass/volume)Ordered By: Nargis Galan on 12-07-2022 Creatinine [Mass/Vol] 0.81 mg/dL 0.55-1.02 [facility] Comment on above: The validity of the calculated GFR & GFRAA in patients over 70 years has not been determined. Clinical correlation is essential. Serum or plasma ferritin hong surement (mass/volume)Ordered By: Nargis Galan on 12-07-2022 Ferritin [Mass/Vol] 116 ng/mL 8-252 [facility] Serum or plasma low density lipoprotein (LDL) cholesterol measurement (mass/volume)Ordered By: Nargis Galan on 12-07-2022 Cholesterol in LDL [Mass/Vol] 156 mg/dL 0-130 [facility] Serum or plasma urea nitroge n measurement (mass/volume)Ordered By: Nargis Galan on 12-07-2022 Urea nitrogen [Mass/Vol] 20 mg/dL 7-18 [facility] Thin prep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 mL/min/1.73 square meters End Stage Renal Disease: Less than 15 mL/min/1.73 square meters Performed By: #### SAMY Hughes #### [place] [address] #### TSH, FT4, LIPID, CMP, GFR #### [address] [address] A1Con 01-30-2020 HbA1c (Bld) [Mass fraction] 7.3 % High 4.3-6.4 [facility] ([place]) Comment on above: Performed By: ###SAMY Call #### [place] [address] #### TSH, FT4, LIPID, CMP, GFR #### [address] [address] CMP 01-30-2020 Albumin Level 4.2 G/dL Normal 3.4-4.8 [facility] ([place]) Comment on above: Performed By: ###SAMY Call #### [place] [address] #### TSH, FT4, LIPID, CMP, GFR #### [address] [address] Albumin/Globulin [Mass ratio] 1.2 {ratio} Normal 1.1-2.5 [facility] ([place]) Comment on above: Performed By: ###SAMY Call #### [place] [address] #### TSH, FT4, LIPID, CMP, GFR #### [address] [address] ALP [Catalytic activity/Vol] 74 U/L Normal 40-135 [facility] ([place]) Comment on above: Performed By: ###SAMY Call #### [place] [address] #### TSH, FT4, LIPID, CMP, GFR #### [address] [address] ALT [Catalytic activity/Vol] 56 U/L High 10-35 [facility] ([place]) Comment on above: Performed By: ###Eliel Oviedo, VI #### [place] [address] #### TSH, FT4, LIPID, CMP, GFR #### [address] [address] AST [Catalytic activity/Vol] 33 U/L Normal 10-40 [facility] ([place]) Comment on above: Performed By: #### Julio Cesar Oviedo, VIDH #### [place] [address] #### TSH, FT4, LIPID, CMP, GFR #### [address] [address] Bili Total 0.3 mg/dL Normal 0.2-1.0 [facility] ([place]) Comment on above: Result Comment: Use of this assay is not recommended for patients undergoing treatment with eltrombopag due to the potential for falsely elevated results. Performed By: ###Eliel Oviedo, VIDH #### [place] [address] #### TSH, FT4, LIPID, CMP, GFR #### [address] [address] BUN/Creatinine Ratio 23 ratio Normal 7-27 [facility] ([place]) Comment on above: Performed By: ###Eliel Oviedo, VIDH #### [place] [address] #### TSH, FT4, LIPID, CMP, GFR #### [address] [address] Calcium [Mass/Vol] 9.2 mg/dL Normal 8.4-10.2 [facility] ([place]) Comment on above: Performed By: ###Eliel Oviedo, VIDH #### [place] [address] #### TSH, FT4, LIPID, CMP, GFR #### [place] [id number] Chloride [Moles/Vol] 102 mmol/L Normal 98-107 [facility] ([place]) Comment on above: Performed By: ###Eliel Oviedo, VIDH #### [address] [address] #### TSH, FT4, LIPID, CMP, GFR #### [address] [address] CO2 [Moles/Vol] 23 mmol/L Normal 23-31 [facility] ([place]) Comment on above: Performed By: #### Julio Cesar Oviedo, VIDH #### [address] [address] #### TSH, FT4, LIPID, CMP, GFR #### [address] [address] Creatinine [Mass/Vol] 0.84 mg/dL Normal 0.55-1.02 [facility] ([place]) Comment on above: Performed By: #### Julio Cesar Oviedo, VIDH #### [address] [address] #### TSH, FT4, LIPID, CMP, GFR #### [address] [address] Electrolyte Balance 12.0 mEq/L Normal [facility] ([place]) Comment on above: Performed By: ###Eliel Oviedo, VIDH #### [place] [address] #### TSH, FT4, LIPID, CMP, GFR #### [address] [address] Globulin 3.4 G/dL Normal [facility] ([place]) Comment on above: Performed By: ###Eliel Oviedo, VIDH #### [address] [address] #### TSH, FT4, LIPID, CMP, GFR #### [address] [address] Glucose [Mass/Vol] 174 mg/dL High 80-115 [facility] ([place]) Comment on above: Performed By: #### A 1C, VIDH #### [place] [address] #### TSH, FT4, LIPID, CMP, GFR #### [address] [address] Potassium [Moles/Vol] 4.3 mmol/L Normal 3.5-5.1 [facility] ([place]) Comment on above: Performed By: #### Julio Cesar 1C, VIDH #### [place] [address] #### TSH, FT4, LIPID, CMP, GFR #### [address] [address] Sodium [Moles/Vol] 137 mmol/L Normal 136-145 [facility] ([place]) Comment on above: Performed By: #### Julio Cesar Oviedo, VIDH #### [place] [address] #### TSH, FT4, LIPID, CMP, GFR #### [address] [address] Total Protein 7.6 G/dL Normal 6.4-8.2 [facility] ([place]) Comment on above: Performed By: #### Julio Cesar Oviedo, VIDH #### [place] [address] #### TSH, FT4, LIPID, CMP, GFR #### [address] [address] Urea nitrogen [Mass/Vol] 19 mg/dL High 7-18 [facility] ([place]) Comment on above: Performed By: #### Julio Cesar 1C, VIDH #### [place] [address] #### TSH, FT4, LIPID, CMP, GFR #### [address] [address] FT4on 01-30-2020 Free T4 [Mass/Vol] 0.83 ng/dL Normal 0.76-1.46 [facility] ([place]) Comment on above: Performed By: #### Julio Cesar 1C, VIDH #### [address] [address] #### TSH, FT4, LIPID, CMP, GFR #### [address] [address] LIPIDon 01-30-2020 Cholesterol [Mass/Vol] 239 mg/dL High 0-200 [facility] ([place]) Comment on above: Result Comment: Chol esterol Reference Interval: Less than 200 Desirable 200-239 Borderline high risk 240 and above High risk Performed By: #### A 1C, VI #### [place] [address] #### TSH, FT4, LIPID, CMP, GFR #### [address] [address] Cholesterol in HDL [Mass/Vol] 31 mg/dL Low 40-60 [facility] ([place]) Comment on above: Performed By: #### Julio Cesar 1C, VI #### [place] [address] #### TSH, FT4, LIPID, CMP, GFR #### [address] [address] LDL Cholesterol Not Valid Normal 0-130 [facility] ([place]) Comment on above: Result Comment: Trig lyceride >400 invalidates the calculated LDL. Performed By: #### A 1C, VIDH #### [place] [address] #### TSH, FT4, LIPID, CMP, GFR #### [address] [address] Triglyceride [Mass/Vol] 403 mg/dL High 0-150 [facility] ([place]) Comment on above: Result Comment: Trig lyceride Reference Interval: Less than 150 Normal 150-199 Borderline high risk 200-499 High risk 500 or higher Very high risk Performed By: #### A 1C, VIDH #### [place] [address] #### TSH, FT4, LIPID, CMP, GFR #### [address] [address] MALBRon 01-30-2020 U Creatinine 100.0 mg/dL Normal [facility] ([place]) Comment on above: Performed By: #### M ALBR #### [place] [address] U Microalb <300 Normal [facility] ([place]) Comment on above: Performed By: #### M ALBR #### [place] [address] U Ratio Alb/Cre Unable to Calculate Normal 0.0-24.9 [facility] ([place]) Comment on above: Result Comment: Unab le to calculate this test result accurately. Results used to calculate this test are outside the reportable range. Performed By: #### M ALBR #### [place] [address] TSHon 01-30-2020 TSH Qn 3.67 m[IU]/L Normal 0.36-3.74 [facility] ([place]) Comment on above: Performed By: #### Julio Cesar 1C, VIDH #### [place] [address] #### TSH, FT4, LIPID, CMP, GFR #### [place] [address] VIDHon 01-30-2020 Vit. D 25-Hydroxy 32.0 ng/mL Normal [facility] ([place]) Comment on above: Result Comment: Inte rpretive Values Based on Total 25(OH)D: Severe Deficiency <20 ng/mL Mild to Moderate Deficiency 20-30 ng/mL Optimum Levels 30-100 ng/mL Toxicity Possible >100 ng/mL Performed By: #### A 1C, VIDH #### [place] [address] #### TSH, FT4, LIPID, CMP, GFR #### [place] [address] [place] Mamm Screen w/CAD if perf ormed bilaton 09-14-2018 [place] Mamm Screen w/CAD if performed bilat Exam Date/Time: 09/13/2018 10:56 EDT Reason for Exam: SCREENING Z12.31 POST MENOPAUSAL Z78.0 Report STUDY: Digital mammography screening; 09/13/2018 10:56 am ACCESSION NUMBER(S): [id number] ORDERING CLINICIAN: Kyra Collier INDICATION: Screening. COMPARISON: Comparison is made to prior digitized film screen mammograms dated 08/02/2009 FINDINGS: CC and MLO 2D digital mammographic images of the bilateral breasts were obtained. The breast tissue is almost entirely fatty. No discrete mass or focal asymmetry is identified. No suspicious microcalcifications or foci of architectural distortion are seen. There has been no significant change. This study was interpreted with CAD. IMPRESSION: No mammographic evidence of malignancy. BI-RADS CATEGORY: Category: 1 - Negative. Recommendation: Normal Interval Follow-up, Over Age 40. Recall Interval: 12 Months. Breast Density: Fatty. FINAL REPORT Dictated: 09/14/2018 8:29 am Lion Vallecillo MD Signed (Electronic Signature): 09/14/2018 8:29 am Signed by: Lion Vallecillo MD Technologist: [facility] Assessment: BI-RADS Category 1-Negative Recommendation: Normal interval follow-up Normal [facility] BD Bone Density DEXAon 09-13 BD Bone Density DEXA Exam Date/Time: 09/13/2018 11:02 EDT Reason for Exam: SCREENING Z12.31 POST MENOPAUSAL Z78.0 Report STUDY: BD Bone Density DEXA; 09/13/2018 11:02 am INDICATION: SCREENING Z12.31 POST MENOPAUSAL Z78.0. Evaluate for osteopenia/osteoporosis , ACCESSION NUMBER(S): [id number] ORDERING CLINICIAN: Kyra Collier FINDINGS: Standard measurements were obtained utilizing an [employer] X-ray Absorptiometry bone densitometer. Data obtained includes planar bone density measurements over the left hip and lumbar spine. Comparison of measured data and standardized mean data for a young adult population (when peak bone mass occurs) results in a T score. This represents the number of standard deviations above or below the mean of a young adult population. Comparison of measured data to standards from an age-adjusted population similarly yields a Z score. Left femoral neck Bone density: 0.727 g/cm2 T score: -1.1 Z Score: 0.6 Lumbar Spine (L1-4) Bone density: 1.163 g/cm2 T Score: 1.1 Z Score: 3.0 World Health Organization (WHO) criteria defines normal bone density as that which is less than 1 standard deviation below the mean of a young adult population. Osteopenia is defined as a measured bone density that is between 1 and 2.5 standard deviations below the mean of a young adult population. Osteoporosis is defined as a measured bone density that is greater than or equal to 2.5 standard deviations below the mean of a young adult population. IMPRESSION: According to World Health Organization criteria, bone mineral density of the left femoral neck and lumbar spine is osteopenic. The patient is at increased risk for fracture. Exam Date/Time: 09/13/2018 11:02 EDT Report 10 year fracture risk for major osteoporotic fracture is 8.1 %. 10 year fracture risk for hip fracture 0.7 % according to the World Health Organization FRAX- fracture risk assessment tool. FINAL REPORT Dictated: 09/13/2018 11:47 am Lion Vallecillo MD Signed (Electronic Signature): 09/13/2018 11:47 am Signed by: Lion Vallecillo MD Technologist: [facility] Vital Signs Date Time Vital Sign Value Performing Clinician Kevi marilee 09-27-2023 09:56-0400 Body height 160.02 cm DO Nargis Galan Work Phone: [facility] 09-27-2023 09:56-0400 Body mass index (BMI) [Ratio] 37.5 kg/m2 DO Nargis Winstonnger Work Phone: [facility] 09-27-2023 09:56-0400 Body temperature 98.6 [degF] DO Nargis Weberer Work Phone: [facility] 09-27-2023 09:56-0400 Body weight 96.16 kg DO Nargis Weberer Work Phone: [facility] 09-27-2023 09:56-0400 Diastolic blood pressure 71 mm[Hg] DO Nargis Winstonnger Work Phone: [facility] 09-27-2023 09:56-0400 Heart rate 75 /min DO Narigs Weberer Work Phone: [facility] 09-27-2023 09:56-0400 Respiratory rate 16 /min DO Nargis Adama Work Phone: [facility] 09-27-2023 09:56-0400 SaO2% (BldA) [Mass fraction] 92 % DO Nargis Adama Work Phone: [facility] 09-27-2023 09:56-0400 Systolic blood pressure 129 mm[Hg] DO Nargis Adama Work Phone: [facility] 06-28-2023 09:37-0500 Body mass index (BMI) [Ratio] 37.7 kg/m2 DO Nargis Adama Work Phone: [facility] 06-28-2023 09:37-0500 Body temperature 98.2 [degF] DO Nargis Adama Work Phone: [facility] 06-28-2023 09:37-0500 Body weight 96.61 kg DO Nargis Adama Work Phone: [facility] 06-28-2023 09:37-0500 Diastolic blood pressure 56 mm[Hg] DO Nargis Adama Work Phone: [facility] 06-28-2023 09:37-0500 Heart rate 73 /min DO Nargis Adama Work Phone: [facility] 06-28-2023 09:37-0500 Respiratory rate 16 /min DO Nargis Adama Work Phone: [facility] 06-28-2023 09:37-0500 SaO2% (BldA) [Mass fraction] 93 % DO Nargis Adama Work Phone: [facility] 06-28-2023 09:37-0500 Systolic blood pressure 112 mm[Hg] DO Nargis Adama Work Phone: [facility] 01-06-2023 10:31-0400 Body weight 90.71 kg WYATT Collier NP Work Phone: [facility] 01-06-2023 10:31-0400 Diastolic blood pressure 60 mm[Hg] [employer] Kyra Hellinger [employer]ACHINE Work Phone: [facility] 01-06-2023 10:31-0400 Heart rate 76 /min [employer] Kyra Hellinger [employer]ACHINE Work Phone: [facility] 01-06-2023 10:31-0400 Respiratory rate 16 /min [employer]C Kyra Hellinger [employer]ACHINE Work Phone: [facility] 01-06-2023 10:31-0400 Systolic blood pressure 113 mm[Hg] [employer]ACHINE-C Kyra Hellinger [employer]ACHINE Work Phone: [facility] 01-06-2023 08:23-0400 Body height 160.02 cm [employer]C Kyra Hellinger [employer]ACHINE Work Phone: [facility] 12-23-2022 09:34-0400 Body mass index (BMI) [Ratio] 35.6 kg/m2 [employer] Kyra Hellinger [employer]ACHINE Work Phone: [facility] 12-23-2022 09:34-0400 Body temperature 98.3 [degF] [employer]C Kyra Hellinger [employer]ACHINE Work Phone: [facility] 12-23-2022 09:34-0400 Body weight 91.34 kg [employer]-C Kyra Hellinger [employer]ACHINE Work Phone: [facility] 12-23-2022 09:34-0400 Diastolic blood pressure 76 mm[Hg] [employer]ACHINE-C Kyra Hellinger [employer] MACHINE Work Phone: [facility] 12-23-2022 09:34-0400 Heart rate 76 /min [employer] Kyra Hellinger [employer]ACHINE Work Phone: [facility] 12-23-2022 09:34-0400 Respiratory rate 16 /min [employer] Kyra Hellinger [employer]ACHINE Work Phone: [facility] 12-23-2022 09:34-0400 SaO2% (BldA) [Mass fraction] 98 % [employer] Kyra Hellinger [employer]ACHINE Work Phone: [facility] 12-23-2022 09:34-0400 Systolic blood pressure 128 mm[Hg] [employer]ACHINE-C Kyra Hellinger [employer]ACHINE Work Phone: [facility] 09-23-2022 13:30-0400 Body temperature 98.2 [degF] [employer]INE[employer]C Kyra Hellinger [employer]ACHINE Work Phone: [facility] 09-23-2022 13:30-0400 Body weight 93.49 kg [employer] Kyra Hellinger [employer]ACHINE Work Phone: [facility] 09-23-2022 13:30-0400 Diastolic blood pressure 76 mm[Hg] [employer]ACHINE-C Kyra Hellinger [employer]ACHINE Work Phone: [facility] 09-23-2022 13:30-0400 Heart rate 77 /min [employer] Kyra Hellinger [employer]ACHINE Work Phone: [facility] 09-23-2022 13:30-0400 Respiratory rate 18 /min [employer] Kyra Hellinger [employer]ACHINE Work Phone: [facility] 09-23-2022 13:30-0400 SaO2% (BldA) [Mass fraction] 93 % [employer] Kyra Hellinger [employer]INE Work Phone: [facility] 09-23-2022 13:30-0400 Systolic blood pressure 128 mm[Hg] [employer]INE[employer]C Kyra Hellinger [employer] Work Phone: [facility] 08-05-2022 10:29-0500 Body height 160.[address] Donell Borden Work Phone: [facility] 08-05-2022 10:29-0500 Body mass index (BMI) [Ratio] 38.9 kg/m2 Dr. Donell Borden Work Phone: [facility] 08-05-2022 10:29-0500 Body temperature 96.4 [degF] Dr. Donell Borden Work Phone: [facility] 08-05-2022 10:29-0500 Body weight 99.[address] Donell Borden Work Phone: [facility] 08-05-2022 10:29-0500 Diastolic blood pressure 61 mm[Hg] Dr. Donell Borden Work Phone: [facility] 08-05-2022 10:29-0500 Heart rate 86 /min Dr. Donell Borden Work Phone: [facility] 08-05-2022 10:29-0500 Respiratory rate 20 /min Dr. Donell Borden Work Phone: [facility] 08-05-2022 10:29-0500 SaO2% (BldA) [Mass fraction] 92 % Dr. Donell Borden Work Phone: [facility] 08-05-2022 10:29-0500 Systolic blood pressure 141 mm[Hg] Dr. Donell Borden Work Phone: [facility] Encounters Encounter Date Encounter Type Care Provider Facility Start: 01-03-2025 ambulatory [facility] Facility:[facility] Start: 09-21-2024 End: 09-21-[address] Rene Cortez MD -Laboratory, [facility] Start: 09-21-2024 End: 09-21-2024 ambulatory Rene Cortez MD Work Phone: [facility] Work Phone: Start: 02-21-2024 End: 02-21-2024 ambulatory Steven Mendez Facility:[facility] Start: 01-12-2024 End: 01-12-2024 ambulatory Rene Dana Facility:[facility] Start: 12-27-2023 End: 12-27-2023 ambulatory Una Gaona Facility:[facility] Start: 12-27-2023 End: 12-27-2023 ambulatory Una Jimenez Facility:[facility] Start: 10-01-2023 End: 10-01-2023 ambulatory DO Nargis Weberer Work Phone: [facility] Work Phone: Start: 10-01-2023 End: 10-01-2023 Patient encounter procedure DO Nargis Galan Work Phone: [facility]-Laboratory, [facility] Start: 09-27-2023 End: 09-27-2023 ambulatory DO Nargis Galan Work Phone: [facility] Work Phone: Start: 09-27-2023 End: 09-27-2023 Patient encounter procedure DO Nargis Galan Work Phone: [facility] Work Phone: Start: 06-28-2023 End: 06-28-2023 Patient encounter procedure DO Nargis Galan Work Phone: [facility] Work Phone: Start: 03-24-2023 End: 03-24-2023 ambulatory [employer] Kyra Analinger [employer] Work Phone: [facility] Work Phone: Start: 03-24-2023 End: 03-24-2023 Patient encounter procedure [employer] Kyra Hellinger [employer] Work Phone: [facility] Work Phone: Start: 01-06-2023 End: 01-06-2023 Patient encounter procedure [employer] Kyra Hellinger [employer] Work Phone: [facility] Work Phone: Start: 12-23-2022 End: 12-23-2022 Patient encounter procedure [employer] Kyra Hellinger [employer] Work Phone: [facility] Work Phone: Start: 12-07-2022 End: 12-07-2022 ambulatory [employer] Kyra Hellinger [employer] Work Phone: [facility] Work Phone: Start: 12-07-2022 End: 12-07-2022 Patient encounter procedure [employer] Kyra Collier [employer] Work Phone: [facility] Work Phone: Start: 09-23-2022 End: 09-23-2022 Patient encounter procedure [employer] Kyra Collier [employer] Work Phone: [facility] Work Phone: Start: 08-08-2022 End: 08-08-2022 Emergency department patient visit YASSINE Gilmar DAVID [facility] Start: 08-05-2022 End: 08-05-[address] Donell Borden Work Phone: [facility] Work Phone: Start: 08-05-2022 End: 08-05-[address] Donell Borden Work Phone: [facility] Start: 08-05-2022 End: 08-05-[address] Donell Borden Work Phone: [facility] Start: 06-30-2022 Non-patient / Non-visit Dr. Donell Borden Work Phone: [facility] Start: 01-07-2021 Chart Update Kyra verdugo [facility]: [facility] [id number] Work Phone: Start: 09-13-2018 End: 09-14-2018 Patient encounter procedure Kyra Collier Facility:[facility] Start: 09-13-2018 Patient encounter procedure Facility:[id number] Procedures Date Procedure Procedure Detail Performing Clinician Start: 09-21-2024 X-ray of lumbar spin e, two or three views Rene Cortez MD Work Phone: Plan of Treatment Date Care Activity Detail Author Histone Ab [Units/volume] in Serum [facility] Nuclear Ab [Presence] in Serum [facility] Payers Date Payer Category Payer Self-pay [id number] 2023 Medicare [id number] 2018 Unknown 2018 Medicare 2011 Unknown [id number] 1950 Unknown [id number] 1950 Unknown [id number] 1950 Unknown [id number] [id number] [id number] Unknown [id number] 2.16.8 [id number] Unknown [id number] 2.16.8 [id number] Unknown [id number] 2.16.8 [id number] Unknown [id number] 2.16.8 [id number] Unknown [id number] 2.16.8 [id number] Unknown [id number] 2.16.8 [id number] Social History Date Type Detail Facility Start: 08-05-2022 End: 06-28-2023 Tobacco smoking status NHIS Unknown if ever smoked [facility] Start: 1950 Sex Assigned At Female [facility] Start: 06-28-2023 Tobacco smoking stat us CTIS Never smoked tobacco (finding) [facility] Start: 09-26-2024 Sex Female (finding) [facility] Medical Equipment Procedure Code Equipment Code Equipment Origin al Text Equipment Identifier Dates Pen Needle, Diab etic (Bd Ultra-Fine Laquita Pen Needle) 32 gauge x 5/32 needle Start: 08-07-2022 Pen Needle, Diab etic (Bd Ultra-Fine Laquita Pen Needle) 32 gauge x 5/32 needle Start: 08-07-2022 Pen Needle, Diab etic (Bd Ultra-Fine Laquita Pen Needle) 32 gauge x 5/32 needle Start: 08-07-2022 Pen Needle, Diab etic (Bd Ultra-Fine Laquita Pen Needle) 32 gauge x 5/32 needle Start: 08-07-2022 Pen Needle, Diab etic (Bd Ultra-Fine Laquita Pen Needle) 32 gauge x 5/32 needle Start: 08-07-2022 Pen Needle, Diab etic (Bd Ultra-Fine Laquita Pen Needle) 32 gauge x 5/32 needle Start: 08-07-2022 Radiology Diagnostic study note 09-21-2024 Note Date & Type Note Facility 09-21-2024 Radiology Diagnostic study note [facility] Imaging Services [address] [place] [address] Lumbar Spine 2 or 3 Views MR#: [id number] Acct: [id number] Name: DREW WOODARD Rep #: [id number] : 1950 F 74 From: Marek Guerrero DO PCP: Dr. Rene Cortez MD Status: REG CL I Study:Lumbar Spine 2 or 3 Views Date of Exam: 09/21/24 Exam# [id number] Ordering Dr: Jayshree Cortez MD PROCEDURE: Lumbar spine radiographs, three views 09/21/2024 REASON FOR EXAM: PAIN TECHNIQUE: Three views of the lumbar spine were obtained. COMPARISON: None available FINDINGS: Three views of the lumbar spine were obtained. The bones are osteopenic. Rightupper quadrant surgical clips are present. No acute lumbar vertebral body fracture. Grade 1 anterolisthesis of L4 relativeto L5. Moderate multilevel degenerative disc and facet disease in the lumbar spine, greatest at the L5-S1 level. RAD/Lumbar Spine 2 or 3 Views IMPRESSION: Osteopenia. No acute bony abnormality of the lumbar spine. Moderate multilevel degenerative disc and facet disease in the lumbar spine, greatest at L5-S1. If there is persistent pain or clinical concern, follow-up MRI evaluation may beconsidered. Reading Location: [facility] CC: Dr. Rene Cortez MD ~ Proposal Review Analyst: Signed [facility] Evaluation note Note Date & Type Note Facility Evaluation note Diagnosis Onset Date Diabetes chronic Obesity chronic Thyroid disease chronic [facility] Work Phone: Evaluation note Note Date & Type Note Facility Evaluation note Diagnosis Onset Date Diabetes chronic José's disease chronic Obesity chronic [facility] Work Phone: Evaluation note Note Date & Type Note Facility Evaluation note Diagnosis Onset Date Diabetes chronic Obesity chronic Thyroid disease chronic Heart palpitations acute Hyperlipidemia chronic [facility] Work Phone: Evaluation note Note Date & Type Note Facility Evaluation note Diagnosis Onset Date Vaginal yeast infection acut e Diabetes chronic José's disease chronic Hyperlipidemia chronic Obesity chronic Fatigue acute Diabetes chronic Hyperlipidemia chronic Obesity chronic Thyroid disease chronic [facility] Work Phone: Evaluation note Note Date & Type Note Facility Evaluation note No assessment information availa [facility] Work Phone: Reason for referral (narrative) Note Date & Type Note Facility Reason for referral (narrative) No reason for referral information available [facility] Work Phone: Summary Purpose Family History No Family History Records Found Relationship Condition Age at Onset Recorded Date/T karina Not Specified Autoimmune disorder Unknown Depression Unknown Cardiac disease Unknown mother Angina at rest Unknown Arthritis Unknown Malignant neoplasm Unknown daughter Malignant neoplasm of breast Unknown sister Malignant neoplasm Unknown father High blood cholesterol Unknown Relationship Condition Age at Onset Recorded Date/T karina Not Specified Autoimmune disorder Unknown Depression Unknown Cardiac disease Unknown mother Angina at rest Unknown Arthritis Unknown Malignant neoplasm Unknown Atrial fibrillation Unknown daughter Malignant neoplasm of breast Unknown sister Malignant neoplasm Unknown father High blood cholesterol Unknown Diabetes mellitus Unknown grandmother Malignant neoplasm of breast Unknown Advance Directives No Advanced Directives Records FoundNo Advanced Directives Records FoundNo Advanced Directives Records FoundNo Advanced Directives Records FoundNo Advanced Directives Records FoundNo Advanced Directives Records Found Chief Complaint and Reason for Visit Chief Complaint Amb Documentation Diabetes E ORDERS Reason for Visit Diabetes Obesity Thyroid disease Chief Complaint 6 wk FU [facility]- [facility] FOR [facility] TOO/NEED TO CALL Reason for Visit Diabetes José's disease Obesity Chief Complaint [facility]- LABS 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 TOO/NEED TO CALL 3 M FU IRREGULAR HEART BEAT (ADAMA) E ORDER Reason for Visit Diabetes Obesity Thyroid disease Heart palpitations Hyperlipidemia Chief Complaint 6 M FU 3 M FU E ORDERS Reason for Visit Vaginal yeast infect ion Diabetes José's disease Hyperlipidemia Obesity Fatigue Diabetes Hyperlipidemia Obesity Thyroid disease Additional Source Comments INFORMATION SOURCE (unrecogn ized section and content) DATE CREATED AUTHOR 09/15/2018 [facility] DATE CREATED AUTHOR AUTHOR'S ORGANIZ ATION 09/16/2018 [facility] DATE CREATED AUTHOR AUTHOR'S ORGANIZ ATION 11/19/2020 [facility] ([place]) DATE CREATED AUTHOR AUTHOR'S ORGANIZ ATION 12/22/2020 [facility] DATE CREATED AUTHOR AUTHOR'S ORGANIZ ATION 08/16/2022 [facility] DATE CREATED AUTHOR AUTHOR'S ORGANIZ ATION 12/26/2024 [facility] Care Teams (unrecognized sec tion and content) Team Status: Active Member Role Status Dates Dr. Donell Borden MD Family Provider Active yKra Collier NP, [employer]-C Primary Care Provider Active Team Status: Inactive Member Role Status Dates Dr. Donell Borden MD Referring Provider Active WYATT Espana Attending Provider Active Kyra Collier NP [employer] Primary Care Provider Active Team Status: Active Member Role Status Dates Dr. Donell Borden MD Primary Care Provider Active Michele Martins Attending Provider Active Team Status: Inactive Member Role Status Dates Kyra Collier NP, [employer] Primary Care Provider Active WYATT Espana Attending Provider, Referring Pr ovider Active Team Status: Active Member Role Status Dates Dr. Donell Borden MD Family Provider Active Nargis Galan DO Primary Care Provider Active Team Status: Inactive Member Role Status Dates Kyra Collier [employer], [employer] Primary Care Provider, Referr ing Provider Active WYATT Espana Attending Provider Active Team Status: Inactive Member Role Status Dates Nargis Galan DO Primary Care Provider Active WYATT Espana Attending Provider, Referring Pr ovider Active Team Status: Inactive Member Role Status Dates Kyra Collier [employer], [employer] Referring Provider Active WYATT Espana Attending Provider Active Nargis Galan DO Primary Care Provider Active Team Status: Inactive Member Role Status Dates Kyra Collier NP, [employer] Referring Provider Active Dr. Gregorio Winn MD Attending Provider Active Nargis Galan DO Primary Care Provider Active Team Status: Inactive Member Role Status Dates Nargis Galan DO Primary Care Provi virgilio, Attending Provider, Referring Provider Active Team Status: Active Member Role Status Dates Dr. Donell Borden MD Family Provider Active Rene Cortez MD Primary Care Provider Active Team Status: Inactive Member Role Status Dates Nargis Galan DO Primary Care Provider, Referring Provider Active Una Gaona , ASHLEY-C Attending Provider Active Team Status: Inactive Member Role Status Dates Rene Cortez MD Primary Care Provider Active Una Gaona [employer] Attending Provider, Referring Pr ovider Active Team Status: Active Member Role Status Dates Rene Cortez MD Primary Care Provider, Attending Prov ider Active Team Status: Inactive Member Role Status Melvin Cortez MD Primary Care Provider, Attending Prov ider Active Team Status: Inactive Member Role Status Melvin Cortez MD Primary Care Provider Active St art: September 21, 2024 End: September 21, 2024 Rene Cortez MD Attending Provider Active Start : September 21, 2024 End: September 21, 2024 Rene Cortez MD Referring Provider Active Start : September 21, 2024 End: September 21, 2024 Goals (unrecognized section and content) Goals may be documented in a n alternate sectionGoals may be documented in an alternate sectionGoals may be documented in an alternate sectionGoals may be documented in an alternate sectionGoals may be documented in an alternate sectionGoals may be documented in an alternate section FOR RECORDS PERTAINING TO PATIENTS WHO ARE OR HAVE BEEN ENROLLED IN A CHEMICAL DEPENDENCY/SUBSTANCEABUSE PROGRAM, SOME INFORMATION MAY BE OMITTED. This clinical summary was aggregated from multiple sources. Caution should be exercised in using it in the provision of clinical care. This summary normalizes information from multiple sources, and as a consequence, information in this document may materially change the coding, format and clinical context of patient data. In addition, data may be omitted in some cases. CLINICAL DECISIONS SHOULD BE BASED ON THE PRIMARY CLINICAL RECORDS. [employer] provides no warranty or guarantee of the accuracy or completeness of information in this document.
== END | disposition home or self-care (01) ==
LOC: OPBI 10:09
PROVIDERS: PCP Family Medicine; Referring Provider Family Medicine; Visit Provider Family Medicine
DX: Z12.31 Encounter for screening mammogram for malignant neoplasm of breast (principal)
CPT/HCPCS: 77063; 77067

== ENCOUNTER → 2025-03-21 | Outpatient (CLI) | payer MEDICARE, BC, SELFPAY | END | disposition home or self-care (01) | LOC: MFPLAB 09:06 | PROVIDERS: PCP Family Medicine; Visit Provider Family Medicine | DX: E11.9 Type 2 diabetes mellitus without complications (principal) | CPT/HCPCS: 36415; 83036 ==